=== PATIENT | female | born 1945 | race Two or more races ===

== ENCOUNTER 2024-03-14 12:43 | Emergency (ER) | payer OTHER, SELFPAY ==
[2024-03-14 13:02] VITALS: BP 169/79; PULSE 86; RESP 19; TEMP 36.5; O2SAT 96; BMI 45.7
--- NOTE | 2024-03-14 13:02 | XR_ITS ---
Examination:Left hip AP, lateral, AP pelvis 3 views Technique: Hip AP lateral, AP pelvis, 3 views Exam date and time:March 14, 2024 1323 hours INDICATIONS: Hip pain this week FINDINGS: Significant osteopenia Moderate narrowing left hip joint No left hip fracture or dislocation Healed old right hip fracture Bones of the pelvis intact IMPRESSION: Bilateral moderate narrowing hip joints.
--- NOTE | 2024-03-14 13:02 | EDNOTE_ITS ---
ED Back Injury Pain RME/HPI General Chief Complaint: Back Pain/Injury Stated Complaint: TAILBONE PAIN X1 WEEK Time Seen by Provider: 03/14/24 12:52 Source: patient, RN notes reviewed and old records reviewed Arrival date/time: 03/14/24 12:43 Mode of arrival: wheelchair Limitations: no limitations RME / HPI RME / HPI Narrative: 78yof presents to ED for left buttocks/hip pain x 1 week. Denies preceding fall or injury/trauma. Patient states pain worsens with bearing weight and ambulation, typically uses a walker at home. Tylenol and ibuprofen taken last night with some relief. No fever, redness, swelling, LE weakness or numbness/tingling reported. Related Data Home Medications ?Medication ?Instructions ?Recorded ?Confirmed amlodipine 10 mg tablet 10 mg PO QDAY 10/04/19 06/20/23 pantoprazole 40 mg tablet,delayed 40 mg PO QDAY 10/04/19 06/20/23 release (Protonix) albuterol sulfate 90 mcg/actuation 1 puff inhalation Q6H PRN Cough 09/15/21 06/20/23 aerosol inhaler empagliflozin 25 mg tablet 1 tab PO QDAY 09/15/21 06/20/23 (Jardiance) gabapentin 400 mg capsule 400 mg PO TID 06/20/23 06/20/23 metformin 1,000 mg tablet 1,000 mg PO BID 06/20/23 06/20/23 Previous Rx's ?Medication ?Instructions ?Recorded lidocaine 5 % topical patch 1 patch topical Q24H #15 ea 03/14/24 naproxen 500 mg tablet (Naprosyn) 500 mg PO BID PRN pain #30 tabs 03/14/24 tramadol 50 mg tablet 50 mg PO Q6H PRN pain #15 tabs 03/14/24 tramadol 50 mg tablet 50 mg PO Q6H PRN pain #15 tabs 03/14/24 tramadol 50 mg tablet 50 mg PO Q6H PRN pain #20 tabs 03/14/24 Allergies Allergy/AdvReac Type Severity Reaction Status Date / Time benazepril Allergy Severe Anaphylaxis Verified 09/16/21 06:09 procaine [From Novocain] Allergy Severe Gastrointestinal Verified 03/14/24 12:47 Upset codeine AdvReac Severe PASSED OUT Verified 02/03/20 17:12 levofloxacin AdvReac Severe DECREASES Verified 02/03/20 17:12 SATURATION Penicillins AdvReac Severe PASSED OUT Verified 02/03/20 17:12 NOVICAINE Allergy Uncoded 03/14/24 12:47 Review of Systems Review of Systems Systems Reviewed: All systems reviewed, normal except as documented Constitutional Constitutional: Denies chills and Denies fever(s) ENT Ears, Nose, Mouth, and Throat: Denies neck pain Gastrointestinal Gastrointestinal: Denies abdominal pain Musculoskeletal Musculoskeletal: Denies back pain, Denies joint swelling, Denies neck pain, Denies numbness and Denies tingling Comments: Reports buttocks pain Integumentary/Breasts Skin/Breast: Denies erythema, Denies furuncle and Denies rash Neurologic Neurologic: Denies localized weakness, Denies numbness and Denies tingling Past Medical History Past Medical History NEUROLOGIC: Negative Neurological Disorders CARDIAC: Positive Cardiac Disorders and Hypertension; Negative Congestive Heart Failure RESPIRATORY: Negative Chronic Obstructive Pulmonary Disease (COPD) or Asthma GENITOURINARY: Positive Renal Disease MUSCULOSKELETAL: Positive Musculoskeletal Disorders ENDOCRINE: Positive Diabetes Mellitus Type 2; Negative Diabetes Mellitus Type 1 HEMATOLOGIC: Positive Anemia; Negative Sickle Cell Disease OTHER HISTORY: Positive Blood Transfusions Surgical History SURGICAL: Positive Abdominal Surgery Social History SMOKING STATUS: Never smoker SUBSTANCE USE: does not use ED Exam General Limitations: Present no limitations General appearance: Present alert, in no apparent distress and obese Head Head exam: Present atraumatic and normocephalic Eye Eye exam: Present normal appearance, PERRL and EOMI ENT ENT exam: Present normal exam and mucous membranes moist Neck Neck exam: Present normal inspection and full ROM Chest Chest inspection: Present normal inspection and symmetric chest wall rise Respiratory Respiratory exam: Present normal lung sounds bilaterally; Absent respiratory distress Cardiovascular Cardiovascular exam: Present regular rate and normal rhythm Abdominal Exam Abdominal exam: Present soft; Absent distention or tenderness Extremities Exam Extremities exam: Present other (Point tenderness to left buttocks. No erythema, swelling or ecchymosis) Back Exam Back exam: Absent CVA tenderness (R) or CVA tenderness (L) Neurological Exam Neurological exam: Present alert and oriented X3 Psychiatric Psychiatric exam: Present normal affect and normal mood Skin Skin exam: Present warm, dry, intact and normal color; Absent rash or erythema Course Quality Measures none Orders Category Date Time Status XR hip LT w pelvis 2-3V Stat Exams 03/14/24 13:02 Completed Acetaminophen Tab [Tylenol ES Tab] Med 03/14/24 13:02 Discontinued 1,000 mg PO X1 ONE Ketorolac Inj [Toradol Inj] Med 03/14/24 13:02 Discontinued 30 mg IM X1 ONE Vital Signs Vital signs: Vital Signs Temperature 97.7 F 03/14/24 13:02 Pulse Rate 86 03/14/24 13:02 Respiratory Rate 19 03/14/24 13:02 Blood Pressure 169/79 H 03/14/24 13:02 Pulse Oximetry (%) 96 03/14/24 13:02 Oxygen Delivery Method Room Air 03/14/24 13:02 Back Pain / Injury MDM Narrative MDM Narrative:: 78yof presents to ED for left buttocks/hip pain x 1 week. Denies preceding fall or injury/trauma. Patient states pain worsens with bearing weight and ambulation, typically uses a walker at home. Tylenol and ibuprofen taken last night with some relief. No fever, redness, swelling, LE weakness or numbness/tingling reported. X-rays negative. Patient is neurovascularly intact. Encouraged rest, ice/heat application, pain management prn. Ortho follow-up recommended if symptoms persist or worsen. Stable for discharge, RTED precautions given. Patient data External records reviewed:: [facility] previous records (Admit 06/20/2023 for pneumonia) Clinical information provided by:: patient Social determinants that could affect healthcare access:: none Patient has the following chronic illnesses:: Obesity, diabetes, hypertension How is presenting disease/condition affected by chronic disease/condition?: exacerbated by Evaluation data The following diagnostics were reviewed and interpreted by me:: radiology exam(s) Lab and/or radiology exams considered but not ordered:: None Interpretation Summary: Hip/pelvis x-rays: No fracture per my read Medications / Prescriptions Medications or Prescriptions considered but not ordered:: No antibiotics recommended at this time Medication administrations:: Medication Administration History Discontinued Medications Acetaminophen (Acetaminophen 500 Mg Tablet) 1,000 mg PO X1 ONE Stop: 03/14/24 13:03 Last Admin: 03/14/24 15:05 Dose: 1,000 mg Documented By: AM Ketorolac Tromethamine (Ketorolac Inj 60 Mg/2 Ml Vial) 30 mg IM X1 ONE Stop: 03/14/24 13:03 Last Admin: 03/14/24 15:05 Dose: 30 mg Documented By: AM Above medications administered in ED Consultations Consultation(s) initiated? (list below): No Diagnosis Differential diagnosis back pain/injury: other (Fracture, strain, contusion, MSK pain, abscess, cellulitis) Most likely diagnosis given after review of the tests above:: MSK pain Admission Indicated Admission indicated?: not indicated Admission Request Was there a request for admission?: No Disposition Plan Disposition Plan: Discharge Discharge Attestation Discharge Attestation: The patient and all family members were given an opportunity to ask questions and understood the discharge instructions. Discharge instructions specifically effects, indications for sooner follow up or return to the emergency department, and the expected course of current diagnosis. Patient condition: Stable Discharge Plan Plan Patient Disposition: HOME (Self Care) Patient condition on transfer: Stable Prescriptions/Referrals Prescriptions/Med Rec: New naproxen [Naprosyn] 500 mg tablet 500 mg PO BID PRN (Reason: pain) Qty: 30 0RF tramadol 50 mg tablet 50 mg PO Q6H PRN (Reason: pain) Qty: 15 0RF lidocaine 5 % adhesive patch,medicated 1 patch topical Q24H Qty: 15 0RF Rx Instructions: leave on most painful area for up to 12 hrs tramadol 50 mg tablet 50 mg PO Q6H PRN (Reason: pain) Qty: 15 0RF tramadol 50 mg tablet 50 mg PO Q6H PRN (Reason: pain) Qty: 20 0RF No Action albuterol sulfate 90 mcg/actuation HFA aerosol inhaler 1 puff INHALATION Q6H PRN (Reason: Cough) Patient Comments: INHALE 2 PUFFS BY MOUTH EVERY 4 TO 6 HOURS NEEDED Jardiance 25 mg tablet 1 tab PO QDAY amlodipine 10 mg Tablet 10 mg PO QDAY pantoprazole [Protonix] 40 mg Tablet,Delayed Release (Dr/Ec) 40 mg PO QDAY gabapentin 400 mg capsule 400 mg PO TID metformin 1,000 mg tablet 1,000 mg PO BID Referrals: Karen Bee MD [Primary Care Provider] - In 1 week Aubrey Patton MD [Physician] - In 1 week (Call to schedule an appointment as needed.) Problem List Clinical Impression: Left buttock pain Patient/Caregiver Discharge Instructions Education Materials: ED Myalgias, ED RICE Print Language: Chinese Stand Alone Forms: [employer] Info., Patient Portal Info Letter PA/GLASS BLOCK INSTALLER Supervising Physician PA/GLASS BLOCK INSTALLER Supervising Physician: Kalpana
[2024-03-14] MEDS: ACETAMINOPHEN 500 MG TABLET 1000 MG PO (15:05)
[2024-03-14] MEDS: KETOROLAC INJ 60 MG/2 ML VIAL 30 MG IM (15:05)
== END 2024-03-14 15:51 | disposition home or self-care (01) ==
PROVIDERS: Emergency Provider Emergency Medicine; PCP Family Medicine
DX: M53.3 Sacrococcygeal disorders, not elsewhere classified (principal); M25.552 Pain in left hip
CPT/HCPCS: 73502; 96372; 99283; J1885; A9270

== ENCOUNTER → 2024-03-21 | Outpatient (CLI) | payer OTHER, SELFPAY ==
[2024-03-21 10:49] LABS: Glucose Estimated Average 263 mg/dL (80-131); Hemoglobin A1C 10.8 % Hgb (4.8-6.0)
[2024-03-21 10:50] LABS: Anion Gap 8 (7-16); BUN/Creatinine Ratio 22 Ratio (12-20); Blood Urea Nitrogen 20 mg/dL (9-23); Calcium 9.7 mg/dL (8.3-10.6); Carbon Dioxide 29.1 mMol/L (20.0-31.0); Chloride 98 mMol/L (98-107); Creatinine (Component) 0.9 mg/dL (0.6-1.3); Glucose 254 mg/dL (74-106); Osmolality,Calculated 281 (275-295); Potassium 4.4 mMol/L (3.4-5.1); Sodium 135 mMol/L (136-145); eGFR > 60 See Note
== END | disposition home or self-care (01) ==
LOC: COPL 09:44
PROVIDERS: PCP Family Medicine; Referring Provider Family Medicine; Visit Provider Family Medicine
DX: E11.42 Type 2 diabetes mellitus with diabetic polyneuropathy (principal)
CPT/HCPCS: 36415; 80048; 83036

== ENCOUNTER → 2024-10-17 | Outpatient (CLI) | payer OTHER, SELFPAY ==
[2024-10-17 10:15] LABS: Basophils # (Auto) 0.0 Thou/mm3 (0.0-0.2); Basophils % (Auto) 1 % (0-2.5); Eosinophils # (Auto) 0.2 Thou/mm3 (0.0-0.5); Eosinophils % (Auto) 2 % (0-10); Hematocrit 37.6 % (36.0-46.0); Hemoglobin 12.4 g/dL (12.0-16.0); Immature Granulocytes Auto 0.05 Thou/mm3 (0.00-0.00); Lymphocytes # (Auto) 2.2 Thou/mm3 (1.0-4.8); Lymphocytes % (Auto) 25 % (10-50); Mean Corpuscular HGB Conc 33.0 g/dl (31.0-37.0); Mean Corpuscular Hemoglobin 30.2 pg (25.0-35.0); Mean Corpuscular Volume 92 fL (80-100); Monocytes # (Auto) 0.8 Thou/mm3 (0.0-0.8); Monocytes % (Auto) 9 % (0-12); Neutrophils # (Auto) 5.6 Thou/mm3 (1.8-7.7); Neutrophils % (Auto) 63 % (37-80); Nucleated Red Blood Cell # 0.00 Thou/mm3 (0.00-0.00); Nucleated Red Blood Cell % 0 /100 WBC (0); Platelet Count 252 Thou/mm3 (140-440); RDW Standard Deviation 45.0 fL (36.4-46.3); Red Blood Count 4.10 Miln/mm3 (4.00-5.20); White Blood Count 8.9 Thou/mm3 (3.6-11.0)
[2024-10-17 10:27] LABS: Glucose Estimated Average 177 mg/dL (80-131); Hemoglobin A1C 7.8 % Hgb (4.8-6.0)
[2024-10-17 10:51] LABS: Alanine Aminotransferase 13 U/L (10-49); Albumin, Serum 4.0 gm/dL (3.4-4.8); Albumin/Globulin Ratio 1.2 (1.2-2.2); Alkaline Phosphatase 108 U/L (46-116); Anion Gap 14 (7-16); Aspartate Amino Transferase 20 U/L (0-34); BUN/Creatinine Ratio 18 Ratio (12-20); Bilirubin,Total 0.3 mg/dL (0.3-1.2); Blood Urea Nitrogen 16 mg/dL (9-23); Calcium 9.0 mg/dL (8.3-10.6); Calcium (Corrected) 9.0 mg/dL (8.5-10.1); Carbon Dioxide 24.7 mMol/L (20.0-31.0); Cardiac Risk Estimate 3.4 RATIO (3.7-5.6); Chloride 103 mMol/L (98-107); Cholesterol 172 mg/dL (132-200); Creatinine (Component) 0.9 mg/dL (0.6-1.3); Globulin 3.3 gm/dL (2.3-3.5); Glucose 185 mg/dL (74-106); HDL Cholesterol 51 mg/dL (40-60); LDL Cholesterol,Calculated 71 mg/dL (0-130); Osmolality,Calculated 289 (275-295); Potassium 3.7 mMol/L (3.4-5.1); Sodium 142 mMol/L (136-145); Total Protein 7.3 gm/dL (5.7-8.2); Triglycerides 248 mg/dL (30-150); eGFR > 60 See Note
[2024-10-17 11:24] LABS: Creatinine MALB Rnd Ur 56 mg/dL (30-125); Microalbumin Creat Ratio 618 mg/gCrea (<30); Microalbumin, Random Urine 346 mg/L (0-300)
== END | disposition home or self-care (01) ==
LOC: COPL 09:41
PROVIDERS: PCP Family Medicine; Referring Provider Family Medicine; Visit Provider Family Medicine
DX: E11.65 Type 2 diabetes mellitus with hyperglycemia (principal)
CPT/HCPCS: 36415; 80053; 80061; 82043; 82570; 83036; 85025

== ENCOUNTER → 2024-10-23 | Outpatient (CLI) | payer OTHER, SELFPAY ==
[2024-10-23 15:15] LABS: Collection Type, Urine Clean Catch
[2024-10-23 16:30] LABS: Bacteria,Urine 4+; Bilirubin,Urine Negative (Negative); Blood,Urine Negative (Negative); Clarity,Urine Clear (Clear/Hazy); Color,Urine Lt-Yellow (Lt Yel-Yel); Glucose, Urine 4+ (Negative); Hyaline Casts,Urine < 1 /hpf (0-1); Ketones,Urine Negative (Negative); Leukocyte Esterase,Urine Positive (Negative); Nitrite,Urine Negative (Negative); PH,Urine 6.0 (5.0-7.0); Protein,Urine 1+ (Neg - Trace); RBC,Urine 5 /hpf (0-3); Specific Gravity,Urine 1.029 (1.001-1.035); Squamous Epithelial Cell,Urine 12 /hpf (0-5); Urobilinogen,Urine Negative mg/dL (0.0-1.0); WBC,Urine 24 /hpf (0-5)
== END | disposition home or self-care (01) ==
LOC: SLDO 14:47
PROVIDERS: PCP Family Medicine; Referring Provider Family Medicine; Visit Provider Family Medicine
DX: N30.00 Acute cystitis without hematuria (principal)
CPT/HCPCS: 81001; 87077; 87086; 87186